=== PATIENT | female | born 1955 | race American Indian/Alaskan Native ===

== ENCOUNTER 2021-07-02 16:58 | Emergency (ER) | payer MEDICARE ==
[2021-07-02 17:11] VITALS: BP 132/81
[2021-07-02] MEDS ORDERED: IBUPROFEN 800 MG TAB PO ONE (17:13)
[2021-07-02] MEDS ORDERED: oxyCODONE /ACETAMINOPHEN 5-325MG TAB PO ONE (17:13)
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
== END 2021-07-02 17:26 | disposition home or self-care (01) ==
LOC: ED 16:58
DX: M79.603 Pain in arm, unspecified (principal); F17.200 Nicotine dependence, unspecified, uncomplicated; E11.9 Type 2 diabetes mellitus without complications; V89.2XXA Person injured in unspecified motor-vehicle accident, traffic, initial encounter; Y93.89 Activity, other specified; Y92.89 Other specified places as the place of occurrence of the external cause; Y99.8 Other external cause status
CPT/HCPCS: 99282